=== PATIENT | female | born 1995 | race African-American/Black ===

== ENCOUNTER 2021-04-08 14:19 | Emergency (ER) | payer OTHER, SELFPAY ==
--- NOTE | ~2021-04-08 | XR_ITS ---
EXAMINATION: XR FINGER, LEFT CLINICAL INFORMATION: Trauma, pain left middle finger. COMPARISON: None TECHNIQUE: 2 views left middle finger and AP view left hand are obtained for 3 views. FINDINGS: Bony mineralization is normal. There is no radiolucent fracture line, dislocation, or destructive process. The lateral view shows a punctate 1 mm density dorsal side DIP joint middle finger of indeterminate age. Possibility of a tiny cortical avulsion cannot be excluded. This may be best correlated with patient's symptoms and clinical exam. The remainder the bony structures are unremarkable. XR/XR finger LT min 2V IMPRESSION: 1. Punctate 1 mm density dorsal side third finger DIP joint. Possibility of tiny cortical avulsion cannot be excluded. Recommend correlation with patient's symptoms and clinical exam. 2. Otherwise, no fracture or dislocation or arthropathy.
[2021-04-08 14:45] VITALS: BP 125/82; PULSE 94; RESP 16; TEMP 36.6; O2SAT 100; BMI 28.3
--- NOTE | 2021-04-08 15:20 | ED.UPPEXIN ---
HPI - Extremity Injury (Upper) General Chief Complaint: Extremity Injury, Upper Stated Complaint: finger injury Time Seen by Provider: 04/08/21 14:49 Source: patient Mode of arrival: ambulatory Limitations: no limitations History of Present Illness complaint: injury to: left and finger (Middle) Onset (ago): minute(s) (Prior to arrival) Other injuries: none Place: home Severity: moderate Relieving factors: none Exacerbating factors: movement of extremity and other (Palpation) Context: other (Twist/bend injury) Associated symptoms: denies other symptoms Related Data Previous Rx's Medication Instructions Recorded acetaminophen [Tylenol Extra 1,000 mg PO QID PRN #14 tab 04/08/21 Strength] ibuprofen 800 mg PO Q8H PRN #14 tab 04/08/21 oxycodone 5 mg PO BID PRN #10 tab 04/08/21 Allergies Allergy/AdvReac Type Severity Reaction Status Date / Time No Known Allergies Allergy Verified 04/08/21 14:45 Review of Systems Review of Systems: Constitutional : No changes in activity, No lethargy, No recent prior head injury, No agitation, No increased fussiness ENT/Mouth : No Ear Pain, No Nasal discharge/drainage Eyes: No Eye Pain, No Swelling, No Redness, No Foreign Body, No Vision Changes Cardiovascular : No Chest Pain, No SOB Respiratory : No Cough Gastrointestinal : No Nausea, No Vomiting, No abdominal Pain Genitourinary : No Dysuria, No Urinary Frequency, No Urinary Incontinence, No Urgency, No Flank Pain Musculoskeletal : + joint pain, No neck stiffness, No back pain/injury Skin : No lacerations Neuro : No unsteady gait, No Paresthesias, No Loss of Consciousness, No altered mental status, No Headache Yes all other systems are reviewed and are negative [facility] Past Medical History Attestation statement: The following information was validated with the patient. Medical History delivery delivered Costochondritis Social History Social History Advance Directives: No Advance Directives Information Provided: Yes Patient : No Physical Exam Vital Signs: Vital Signs: Last Vital Signs Temp 98 F 04/08/21 14:45 Pulse 94 04/08/21 14:45 Resp 16 04/08/21 14:45 BP 125/82 04/08/21 14:45 Pulse Ox 100 04/08/21 14:45 Body Mass Index 28.3 vital signs have been reviewed as normal and appeared to be correct. Blood pressure normal. Heart rate normal. Respiration rate normal. Temperature normal. Oxygen saturation normal. Appearance: Alert. Oriented X3. No acute distress. Head: Normal external exam. Normocephalic. Atraumatic. Eyes: PERRLA. EOMI. Conjunctiva and sclera normal. Eyelids normal. ENT: Pharynx normal. Uvula midline. Moist mucous membranes. Neck: Normal inspection. Neck supple. FROM. No adenopathy. Thyroid Normal. No meningeal signs. No neck mass noted. CVS: Normal heart rate and rhythm. Heart sound normal. Pulses normal throughout. Respiratory: No respiratory distress. Painless inspiration. Back: Full range of motion noted. No rashes/lesion/induration/fluctuance or signs of infection noted. Skin: Skin warm and dry. Normal skin color. Normal skin turgor. No rashes/lesions/lacerations noted. Extremities: To left hand middle finger at the PIP patient has mild soft tissue swelling and tender to palpation no obvious deformities or laxity noted at this time. Otherwise Extremities exhibit normal range of motion and nontender. Neuro: Oriented X 3. No motor deficit. No sensory deficit. Reflexes normal. Normal steady gait. No focal neuro deficits noted. Vascular: + radial pulses. Normal cap refill. No cyanosis noted to upper extremity nails. Course Course Course Narrative: Patient status post twist injury x-ray obtained and revealed possible avulsion fracture will place in a finger splint treat symptomatically and instructions to follow-up with orthopedic. Patient understands agrees with this plan. MDM - Extremity Injury (Upper) Medical Records Attestation: I reviewed the patient's medical records. Imaging Data Left middle finger x-ray: Attestation: I personally reviewed and interpreted this imaging study as follows: Radiologist's impression: FINDINGS: Bony mineralization is normal. There is no radiolucent fracture line, dislocation, or destructive process. The lateral view shows a punctate 1 mm density dorsal side DIP joint middle finger of indeterminate age. Possibility of a tiny cortical avulsion cannot be excluded. This may be best correlated with patient's symptoms and clinical exam. The remainder the bony structures are unremarkable. XR/XR finger LT min 2V IMPRESSION: 1. Punctate 1 mm density dorsal side third finger DIP joint. Possibility of tiny cortical avulsion cannot be excluded. Recommend correlation with patient's symptoms and clinical exam. 2. Otherwise, no fracture or dislocation or arthropathy. Discharge Plan Discharge Clinical Impression: Avulsion fracture of middle phalanx of finger Patient Disposition: Home, Self-Care Instructions: Finger Fracture (ED) Prescriptions: New ibuprofen 800 mg tablet 800 mg PO Q8H PRN (Reason: pain) Qty: 14 RF: 0 acetaminophen [Tylenol Extra Strength] 500 mg tablet 1,000 mg PO QID PRN (Reason: fever or pain) Qty: 14 RF: 0 oxycodone 5 mg tablet 5 mg PO BID PRN (Reason: pain) Qty: 10 RF: 0 Referrals: Rose Marie Alarcon MD [Physician] - 1 week Print Language: Greek
== END 2021-04-08 16:11 | disposition home or self-care (01) ==
PROVIDERS: Emergency Provider Emergency Medicine Emergency Medical Services; PCP Internal Medicine
DX: S62.623A Displaced fracture of middle phalanx of left middle finger, initial encounter for closed fracture (principal); W23.1XXA Caught, crushed, jammed, or pinched between stationary objects, initial encounter; Y93.89 Activity, other specified; Y92.017 Garden or yard in single-family (private) house as the place of occurrence of the external cause; Y99.9 Unspecified external cause status
CPT/HCPCS: 29130; 73140; 99283

== ENCOUNTER 2021-04-20 08:15 | Outpatient (REF) | payer OTHER, SELFPAY ==
--- NOTE | ~2021-04-20 | XR_ITS ---
EXAMINATION: XR HAND, LEFT CLINICAL INFORMATION: Pain and left hand. COMPARISON: None TECHNIQUE: PA, lateral, and oblique views of the left hand. FINDINGS: The bones and soft tissues are normal. No fracture. Alignment is anatomic. Joint spaces are maintained. No erosions or soft tissue calcifications. XR/XR hand LT min 3V IMPRESSION: Unremarkable left hand exam
== END 2021-04-20 08:16 | disposition home or self-care (01) ==
LOC: HO.HOSX 08:15
PROVIDERS: Visit Provider Orthopaedic Surgery
DX: M79.642 Pain in left hand (principal); S63.633A Sprain of interphalangeal joint of left middle finger, initial encounter; W23.0XXA Caught, crushed, jammed, or pinched between moving objects, initial encounter; Y93.67 Activity, basketball; Y92.9 Unspecified place or not applicable; Y99.8 Other external cause status
CPT/HCPCS: 73130; 99202

== ENCOUNTER 2022-02-16 19:13 | Emergency (ER) | payer OTHER, SELFPAY ==
--- NOTE | ~2022-02-16 | XR_ITS ---
EXAMINATION: XR CHEST CLINICAL INFORMATION: Chest pain. COMPARISON: None. TECHNIQUE: PA view of the chest was obtained. FINDINGS: Normal appearance of the cardiomediastinal silhouette. No focal airspace opacities, pleural effusions or pneumothorax. No acute osseous abnormalities. The visualized upper abdomen is within normal limits. XR/XR chest 1V IMPRESSION: No acute cardiopulmonary findings.
--- NOTE | 2022-02-16 19:54 | ECG_ITS ---
Test Reason : CHEST PAIN Blood Pressure : / mmHG Vent. Rate : 082 BPM Atrial Rate : 082 BPM P-R Int : 140 ms QRS Dur : 078 ms QT Int : 376 ms P-R-T Axes : 028 027 027 degrees QTc Int : 439 ms Normal sinus rhythm Normal ECG No previous ECGs available Referred By: Generic ED Physician Electronically Signed By:MATHEUS COOK
[2022-02-16 19:55] VITALS: BP 110/90; PULSE 80; RESP 17; TEMP 36.4; O2SAT 98; BMI 29.5
[2022-02-16 20:13] LABS: MANUAL DIFF FLAG NO
[2022-02-16 20:17] LABS: Basophils Absolute Auto 0.1 X10*3/uL (0.0-0.2); Basophils Percent Auto 0.7 % (0-2); Eosinophils Absolute Auto 0.2 X10*3/uL (0.0-0.4); Eosinophils Percent Auto 2.5 % (0-4); Hematocrit 41.4 % (37.0-47.0); Imm Gran Abs Auto 0.02 X10*3/uL (0.00-0.03); Imm Gran Pct Auto 0.2 % (0.0-0.4); Lymphocytes Absolute Auto 3.3 X10*3/uL (1.2-4.9); Lymphocytes Percent Auto 38.4 % (20-40); Mean Corpuscular HGB Conc 33.8 g/dl (31.0-35.0); Mean Corpuscular Hemoglobin 29.8 pg (27.0-33.0); Mean Corpuscular Volume 88.1 fL (80.0-98.0); Mean Platelet Volume 10.4 fL (9.4-12.3); Monocytes Absolute Auto 0.6 X10*3/uL (0.1-1.2); Monocytes Percent Auto 7.1 % (2-11); Neutrophils Absolute Auto 4.4 x10*3/uL (2.0-8.3); Neutrophils Percent Auto 51.1 % (45-73); Platelet Count 343 X10*3/uL (160-400); White Blood Count 8.6 X10*3/uL (4.8-10.8)
[2022-02-16 20:34] LABS: Anion Gap 14 (12-20); Blood Urea Nitrogen 4 mg/dL (9-16); Calcium 10.3 mg/dL (8.4-10.2); Carbon Dioxide 26 mmol/L (22-29); Chloride 102 mmol/L (96-108); Creatinine Clr Calc Pharmacy 84.2; Estimated Glomerular Filt Rate > 60; Glucose Random 96 mg/dL (60-115); Potassium 3.5 mmol/L (3.3-5.1); Sodium 138 mmol/L (135-145)
[2022-02-16 20:40] LABS: Troponin-I High Sensitivity < 3.5 ng/L (<3.5-17.0)
--- NOTE | 2022-02-16 22:01 | ED_ITS ---
HPI - Chest Pain General Chief Complaint: Chest Pain Stated Complaint: left side numbness Time Seen by Provider: 02/16/22 22:01 Source: patient Mode of arrival: ambulatory Limitations: no limitations History of Present Illness HPI narrative: patient with no known coronary risk factors complaining of pain left upper chest pain with pain in the left upper arm no shortness of breath no apparent distress no palpitation no fever or chills or cough had subjective shortness of breath, on arrival saturating 98% on room air Related Data Previous Rx's Medication Instructions Recorded acetaminophen 500 mg tablet 1,000 mg PO QID PRN #14 tab 04/08/21 (Tylenol Extra Strength) ibuprofen 800 mg tablet 800 mg PO Q8H PRN #14 tab 04/08/21 oxycodone 5 mg tablet 5 mg PO BID PRN #10 tab 04/08/21 Allergies Allergy/AdvReac Type Severity Reaction Status Date / Time No Known Allergies Allergy Verified 04/20/21 12:13 Review of Systems Review of Systems: Yes all other systems are reviewed and are negative PMFSH Past Medical History Medical History delivery delivered Costochondritis HTN (hypertension) Social History Social History Alcohol intake: current Alcohol intake frequency: holidays/special occasions only Patient Tobacco Use Status: Never used Tobacco Advance Directives: No Current occupational status: employed Current occupation: right handed Physical Exam Vital Signs: Vital Signs: Last Vital Signs Temp 97.5 F 02/16/22 19:55 Pulse 80 02/16/22 19:55 Resp 17 02/16/22 19:55 BP 110/90 H 02/16/22 19:55 Pulse Ox 98 02/16/22 19:55 BMI result Body Mass Index 29.5 Appearance: Alert. Oriented X3. No acute distress. ENT: Pharynx normal. Oral Mucosa moist Neck: Normal inspection. Neck supple. CVS: Normal heart rate and rhythm. Pulses normal. Respiratory: No respiratory distress. Equal air entry bilateral, left chest w all tenderness+ Abdomen: Soft and nontender. Skin: Skin warm and dry. Normal skin color. Normal skin turgor. Extremities: No lower extremity edema. No calf tenderness Neuro: Oriented X 3. MDM - Chest Pain MDM Narrative Medical decision making narrative: patient atypical chest pain negative troponin negative EKG heart score 0 will discharge patient home Lab Data Attestation: I reviewed the patient's lab results. Result diagrams: 02/16/22 20:05 02/16/22 20:05 Labs: Lab Results 02/16/22 02/16/22 02/16/22 Range/Units 20:05 20:05 20:05 WBC 8.6 (4.8-10.8) X10*3/uL RBC 4.70 (4.20-5.50) X10*6/uL Hgb 14.0 (12.0-16.0) g/dl Hct 41.4 (37.0-47.0) % MCV 88.1 (80.0-98.0) fL MCH 29.8 (27.0-33.0) pg MCHC 33.8 (31.0-35.0) g/dl RDW 13.0 (11.0-16.0) % Plt Count 343 (160-400) X10*3/uL MPV 10.4 (9.4-12.3) fL Immature Gran % (Auto) 0.2 (0.0-0.4) % Neut % (Auto) 51.1 (45-73) % Lymph % (Auto) 38.4 (20-40) % [place] % (Auto) 7.1 (2-11) % Eos % (Auto) 2.5 (0-4) % Baso % (Auto) 0.7 (0-2) % Lymph # (Auto) 3.3 (1.2-4.9) X10*3/uL [place] # (Auto) 0.6 (0.1-1.2) X10*3/uL Eos # (Auto) 0.2 (0.0-0.4) X10*3/uL Baso # (Auto) 0.1 (0.0-0.2) X10*3/uL Abs Immat Gran (auto) 0.02 (0.00-0.03) X10*3/uL Absolute Neuts (auto) 4.4 (2.0-8.3) x10*3/uL Absolute Nucleated RBC 0.000 (0.0-0.012) X10*3/uL Nucleated RBC % (auto) 0.0 (0.0-0.2) /100WBC Sodium 138 (135-145) mmol/L Potassium 3.5 (3.3-5.1) mmol/L Chloride 102 (96-108) mmol/L Carbon Dioxide 26 (22-29) mmol/L Anion Gap 14 (12-20) BUN 4 L (9-16) mg/dL Creatinine 0.83 (0.5-1.4) mg/dL Estim Creat Clear Calc 84.2 Estimated GFR > 60 Random Glucose 96 (60-115) mg/dL Calcium 10.3 H (8.4-10.2) mg/dL Troponin I High Sens < 3.5 (<3.5-17.0) ng/L ECG Data ECG #1: Attestation: I personally reviewed and interpreted this ECG as follows: Interpretation: normal sinus rhythm with heart rate of 82 beats per minute normal intervals normal axis no acute STT wave changes no acute ischemia Scores Heart Score History: -0- slightly suspicious ECG: -0- normal Age: -0- < or = 45 Risk factory: -0- no risk factors known Troponin: -0- < or = normal limit Score: 0 Risk: 1.7% Discharge Plan Discharge Clinical Impression: Atypical chest pain Patient Disposition: Home, Self-Care Instructions: Musculoskeletal Pain (ED) Additional Instructions: Take Tylenol/Motrin for pain as needed your pain is not from the heart likely musculoskeletal Prescriptions: No Action ibuprofen 800 mg tablet 800 mg PO Q8H PRN (Reason: pain) Qty: 14 0RF acetaminophen [Tylenol Extra Strength] 500 mg tablet 1,000 mg PO QID PRN (Reason: fever or pain) Qty: 14 0RF oxycodone 5 mg tablet 5 mg PO BID PRN (Reason: pain) Qty: 10 0RF Interventions: ED Discharge Assessment Last Done: 02/16/22 22:19 Discharge Date/Time: 02/16/22 22:20
== END 2022-02-16 22:20 | disposition home or self-care (01) ==
LOC: HO.ED 22:10
PROVIDERS: Emergency Provider Internal Medicine
DX: R07.89 Other chest pain (principal); I10 Essential (primary) hypertension
CPT/HCPCS: 36415; 71045; 80048; 84484; 85025; 93005; 99283

== ENCOUNTER 2022-04-04 13:37 | Emergency (ER) | payer OTHER, SELFPAY ==
[2022-04-04 13:44] VITALS: BP 110/60; PULSE 105; O2SAT 99
[2022-04-04 14:15] VITALS: BP 117/75; PULSE 73; RESP 18; TEMP 36.4; O2SAT 98; BMI 30.2
[2022-04-04 14:31] LABS: Basophils Absolute Auto 0.1 X10*3/uL (0.0-0.2); Basophils Percent Auto 0.5 % (0-2); Eosinophils Percent Auto 0.3 % (0-4); Hematocrit 42.1 % (37.0-47.0); Hemoglobin 13.8 g/dl (12.0-16.0); Imm Gran Abs Auto 0.08 X10*3/uL (0.00-0.03); Imm Gran Pct Auto 0.5 % (0.0-0.4); Lymphocytes Absolute Auto 2.8 X10*3/uL (1.2-4.9); Lymphocytes Percent Auto 18.5 % (20-40); MANUAL DIFF FLAG NO; Mean Corpuscular HGB Conc 32.8 g/dl (31.0-35.0); Mean Corpuscular Hemoglobin 29.6 pg (27.0-33.0); Mean Corpuscular Volume 90.3 fL (80.0-98.0); Mean Platelet Volume 9.9 fL (9.4-12.3); Monocytes Absolute Auto 0.5 X10*3/uL (0.1-1.2); Monocytes Percent Auto 3.5 % (2-11); Neutrophils Absolute Auto 11.7 x10*3/uL (2.0-8.3); Neutrophils Percent Auto 76.7 % (45-73); Platelet Count 383 X10*3/uL (160-400); Red Blood Count 4.66 X10*6/uL (4.20-5.50); Red Cell Distribution Width 14.6 % (11.0-16.0); White Blood Count 15.3 X10*3/uL (4.8-10.8)
[2022-04-04 14:53] LABS: COVID-19 Test Negative (Negative); IDNOW Serial# 55D5AD1C
[2022-04-04 14:59] LABS: IDNOW Serial# 16C4AD1C; Influenza A Negative (Negative); Influenza B2 Negative (Negative)
[2022-04-04 15:11] LABS: Anion Gap 22 (12-20); Blood Urea Nitrogen 11 mg/dL (9-16); Carbon Dioxide 19 mmol/L (22-29); Chloride 108 mmol/L (96-108); Creatinine Clr Calc Pharmacy 76.2; Estimated Glomerular Filt Rate > 60; Glucose Random 59 mg/dL (60-115); Potassium 4.1 mmol/L (3.3-5.1); Sodium 145 mmol/L (135-145)
--- NOTE | 2022-04-04 23:37 | ED_ITS ---
HPI - General Adult General Chief complaint: Nausea/Vomiting/Diarrhea Stated complaint: WEAKNESS,N/V Time Seen by Provider: 04/04/22 23:36 Source: patient Mode of arrival: ambulatory Limitations: no limitations History of Present Illness HPI narrative: patient no significant past medical history been vomiting all day today unable to hold down anything solid urinated only 1 time no fever no chills no other family member sick patient has abdominal cramping diffusely denies any urinary complaints denies any bad food intake or recent travel Related Data Previous Rx's Medication Instructions Recorded acetaminophen 500 mg tablet 1,000 mg PO QID PRN #14 tab 04/08/21 (Tylenol Extra Strength) ibuprofen 800 mg tablet 800 mg PO Q8H PRN #14 tab 04/08/21 oxycodone 5 mg tablet 5 mg PO BID PRN #10 tab 04/08/21 ondansetron 4 mg disintegrating 4 mg PO Q6-8H PRN #10 tab 04/05/22 tablet Allergies Allergy/AdvReac Type Severity Reaction Status Date / Time No Known Allergies Allergy Verified 04/04/22 14:15 Review of Systems Review of Systems: Yes all other systems are reviewed and are negative [facility] Past Medical History Medical History delivery delivered Costochondritis HTN (hypertension) Social History Social History Alcohol intake: current Alcohol intake frequency: holidays/special occasions only Patient Tobacco Use Status: Never used Tobacco Advance Directives: No Advance Directives Information Provided: No Current occupational status: employed Current occupation: right handed Physical Exam ED Vital Signs: Vital Signs - 24 hr 04/04/22 14:15 04/04/22 23:57 Temperature 97.6 F 98.2 F Pulse Rate 73 57 Respiratory Rate 18 16 Blood Pressure 117/75 110/56 L Pulse Oximetry 98 100 BMI result Body Mass Index 30.2 Appearance: Alert. Oriented X3. No acute distress. Eyes: no pallor or icterus ENT: Pharynx normal. Oral Mucosa moist Neck: Normal inspection. Neck supple. CVS: Normal heart rate and rhythm. Pulses normal. Respiratory: No respiratory distress. Equal air entry bilateral, no wheezing/rales/rhonchi Abdomen: Soft and nontender. Bowel sounds are present, no mass palpable, no CVA tenderness no focal tenderness or guarding Skin: Skin warm and dry. Normal skin color. Normal skin turgor. Extremities: No lower extremity edema. Medical Decision Making MDM Narrative Medical decision making narrative: patient feeling much better now taking p.o. fluids no focal abdominal tenderness discharge patient home likely viral etiology Lab Data Lab results reviewed: Yes I reviewed the patient's lab results. Result diagrams: 04/04/22 14:23 04/04/22 14:23 Labs: Lab Results 04/04/22 04/04/22 04/04/22 Range/Units 14:23 14:23 14:23 WBC 15.3 H (4.8-10.8) X10*3/uL RBC 4.66 (4.20-5.50) X10*6/uL Hgb 13.8 (12.0-16.0) g/dl Hct 42.1 (37.0-47.0) % MCV 90.3 (80.0-98.0) fL MCH 29.6 (27.0-33.0) pg MCHC 32.8 (31.0-35.0) g/dl RDW 14.6 (11.0-16.0) % Plt Count 383 (160-400) X10*3/uL MPV 9.9 (9.4-12.3) fL Immature Gran % (Auto) 0.5 H (0.0-0.4) % Neut % (Auto) 76.7 H (45-73) % Lymph % (Auto) 18.5 L (20-40) % [place] % (Auto) 3.5 (2-11) % Eos % (Auto) 0.3 (0-4) % Baso % (Auto) 0.5 (0-2) % Lymph # (Auto) 2.8 (1.2-4.9) X10*3/uL [place] # (Auto) 0.5 (0.1-1.2) X10*3/uL Eos # (Auto) 0.0 (0.0-0.4) X10*3/uL Baso # (Auto) 0.1 (0.0-0.2) X10*3/uL Abs Immat Gran (auto) 0.08 H (0.00-0.03) X10*3/uL Absolute Neuts (auto) 11.7 H (2.0-8.3) x10*3/uL Absolute Nucleated RBC 0.000 (0.0-0.012) X10*3/uL Nucleated RBC % (auto) 0.0 (0.0-0.2) /100WBC Sodium 145 (135-145) mmol/L Potassium 4.1 (3.3-5.1) mmol/L Chloride 108 (96-108) mmol/L Carbon Dioxide 19 L (22-29) mmol/L Anion Gap 22 H (12-20) BUN 11 D (9-16) mg/dL Creatinine 0.93 (0.5-1.4) mg/dL Estim Creat Clear Calc 76.2 Estimated GFR > 60 Random Glucose 59 L* (60-115) mg/dL Calcium 10.0 (8.4-10.2) mg/dL Urine Color Urine Appearance Urine pH (5.0-8.0) Ur Specific [place] (1.005-1.025) Urine Protein (NEG-TRACE) MG/DL Urine Glucose (UA) (NEG) MG/DL Urine Ketones (NEG) MG/DL Urine Blood (NEG) Urine Nitrite (NEG) Ur Leukocyte Esterase (NEG) Urine Test (NEGATIVE) COVID-19 (MATTHEW) (Negative) COVID-19 Clin Com Influenza Type A (OLLIE) Negative (Negative) Influenza Type B (OLLIE) Negative (Negative) Influenza A & B Note See Note 04/04/22 04/05/22 04/05/22 Range/Units 14:23 00:24 00:24 WBC (4.8-10.8) X10*3/uL RBC (4.20-5.50) X10*6/uL Hgb (12.0-16.0) g/dl Hct (37.0-47.0) % MCV (80.0-98.0) fL MCH (27.0-33.0) pg MCHC (31.0-35.0) g/dl RDW (11.0-16.0) % Plt Count (160-400) X10*3/uL MPV (9.4-12.3) fL Immature Gran % (Auto) (0.0-0.4) % Neut % (Auto) (45-73) % Lymph % (Auto) (20-40) % [place] % (Auto) (2-11) % Eos % (Auto) (0-4) % Baso % (Auto) (0-2) % Lymph # (Auto) (1.2-4.9) X10*3/uL [place] # (Auto) (0.1-1.2) X10*3/uL Eos # (Auto) (0.0-0.4) X10*3/uL Baso # (Auto) (0.0-0.2) X10*3/uL Abs Immat Gran (auto) (0.00-0.03) X10*3/uL Absolute Neuts (auto) (2.0-8.3) x10*3/uL Absolute Nucleated RBC (0.0-0.012) X10*3/uL Nucleated RBC % (auto) (0.0-0.2) /100WBC Sodium (135-145) mmol/L Potassium (3.3-5.1) mmol/L Chloride (96-108) mmol/L Carbon Dioxide (22-29) mmol/L Anion Gap (12-20) BUN (9-16) mg/dL Creatinine (0.5-1.4) mg/dL Estim Creat Clear Calc Estimated GFR Random Glucose (60-115) mg/dL Calcium (8.4-10.2) mg/dL Urine Color YELLOW Urine Appearance CLEAR Urine pH 6.0 (5.0-8.0) Ur Specific [place] >= 1.030 H (1.005-1.025) Urine Protein NEG (NEG-TRACE) MG/DL Urine Glucose (UA) NEG (NEG) MG/DL Urine Ketones 40 (NEG) MG/DL Urine Blood NEG (NEG) Urine Nitrite NEG (NEG) Ur Leukocyte Esterase NEG (NEG) Urine Test NEGATIVE (NEGATIVE) COVID-19 (MATTHEW) Negative (Negative) COVID-19 Clin Com See Note Influenza Type A (OLLIE) (Negative) Influenza Type B (OLLIE) (Negative) Influenza A & B Note Discharge Plan Discharge Clinical Impression: Gastroenteritis Patient Disposition: Home, Self-Care Instructions: Acute Nausea and Vomiting (ED) Additional Instructions: drink plenty of fluids nausea medicine as prescribed follow with PCP if not better Prescriptions: New ondansetron 4 mg tablet,disintegrating 4 mg PO Q6-8H PRN (Reason: nausea and vomiting) Qty: 10 0RF No Action ibuprofen 800 mg tablet 800 mg PO Q8H PRN (Reason: pain) Qty: 14 0RF acetaminophen [Tylenol Extra Strength] 500 mg tablet 1,000 mg PO QID PRN (Reason: fever or pain) Qty: 14 0RF oxycodone 5 mg tablet 5 mg PO BID PRN (Reason: pain) Qty: 10 0RF
[2022-04-04] MEDS: ondansetron HCL 4 MG/2 ML VIAL IVPUSH (23:50)
[2022-04-04] MEDS: 0.9 % Sodium Chloride 1,000 ML 999 ML IV (23:52)
[2022-04-04 23:57] VITALS: BP 110/56; PULSE 57; RESP 16; TEMP 36.8; O2SAT 100
[2022-04-05 00:42] LABS: Appearance Urine CLEAR; Color Urine YELLOW; Glucose Urine UA NEG (NEG); Leukocyte Esterase Urine NEG (NEG); Nitrite Urine NEG (NEG); Specific Gravity - Urine >= 1.030 (1.005-1.025); Urine Blood NEG (NEG); Urine Ketones 40 MG/DL (NEG); Urine Protein NEG (NEG-TRACE)
[2022-04-05 00:59] LABS: Urine Pregnancy NEGATIVE (NEGATIVE)
[2022-04-05 01:00] LABS: UPreg QC Valid YES
== END 2022-04-05 01:40 | disposition home or self-care (01) ==
PROVIDERS: Emergency Provider Internal Medicine; PCP Internal Medicine
DX: K52.9 Noninfective gastroenteritis and colitis, unspecified (principal); R11.2 Nausea with vomiting, unspecified; Z20.822 Contact with and (suspected) exposure to COVID-19; Z79.899 Other long term (current) drug therapy
CPT/HCPCS: 80048; 81003; 81025; 85025; 87502; 87635; 96361; 96374; 99283; 99284; J2405

== ENCOUNTER 2022-09-30 16:32 | Outpatient (REF) | payer OTHER, SELFPAY ==
[2022-09-30 17:35] LABS: Influenza A PCR NEGATIVE (Negative); Influenza B PCR NEGATIVE (Negative); Resp Syncy Virus RNA Qual PCR NEGATIVE (Negative); SARS COV2 PCR INHOUSE POSITIVE (Negative)
== END 2022-09-30 16:33 | disposition home or self-care (01) ==
LOC: HO.LNP 16:32
PROVIDERS: Visit Provider Physician Assistant
DX: J06.9 Acute upper respiratory infection, unspecified (principal); Z20.822 Contact with and (suspected) exposure to COVID-19
CPT/HCPCS: 0241U

== ENCOUNTER 2024-01-25 10:29 | Outpatient (AMB) | payer OTHER, SELFPAY ==
--- NOTE | 2024-01-25 11:33 | MHC.OFFWIV ---
Intake Vital Signs 01/25/24 11:43 Weight 143 lb BP 116/60 Blood Pressure Location Lt brachial Position Sitting Pulse 98 Pulse Source Pulse Oximeter Temp 98.4 F Temp Source Temporal Artery Scan Pulse Oximetry (%) 99 Oxygen Delivery Method Room Air Intake Visit Reasons: EST/cough and fever([phone]) Intake Note: pt is here today for cough and fever started 1 week ago Patient Tobacco Use Status: Current everyday Tobacco user Allergies No Known Allergies Allergy (Verified 01/25/24 11:35) Do you need a note to return to daycare/school/sports/work: Yes HPI HPI Comments History of Present Illness Details 28 y/o female patient who presents to walk in clinic with c/o cough and fever x 1 week. Reports wheezing, chest tightness and SOB. Her family at home sick with similar symptoms. She works as high school social science teacher. [employer] [employer] [facility] Medical History delivery delivered Costochondritis HTN (hypertension) Social History Alcohol intake: current Alcohol intake frequency: holidays/special occasions only Patient Tobacco Use Status: Current everyday Tobacco user Current occupational status: employed Current occupation: right handed Physical Exam Vital Signs: Last Vital Signs Temp 98.4 F 01/25/24 11:43 Pulse 98 01/25/24 11:43 BP 116/60 01/25/24 11:43 Pulse Ox 99 01/25/24 11:43 Oxygen Delivery Method Room Air 01/25/24 11:43 Const General: comfortable and no acute distress Orientation/consciousness: patient oriented x3 HEENT Head: Yes normocephalic Ears: external ears normal and TM abnormal erythematous bilateral and with fluid behind the TM bilateral General nose exam: Abnormal mucous membranes and turbinates present boggy and erythematous Face and sinus: Yes sinuses nontender Mouth: moist mucous membranes Throat: Yes posterior oropharynx normal Resp Effort & Inspection: normal respiratory effort, able to speak in complete sentences and Actively coughing Auscultation: no crackles, no rales and wheezes Cardio Rate: regular rate Rhythm: regular rhythm Neuro General: patient oriented x3 Office Procedures Nebulizer Treatment Nebulizer Treatment [id number] RX initial, or Nebulizer Subsequent Treatment Office Meds ipratropium 0.5 mg-albuterol 3 mg (2.5 mg base)/3 mL nebulization soln Performing Provider: Shayy Eason NP Performing Location: [facility] Administered by: Shayy Eason NP on 01/25/24 12:37 Dose Route Admin Location Dispensed Lot Number Expiration Date NDC [employer] 3 mL inhalation 3 mL [id number] 08/20/24 5686-1155-05 [facility] Assessment & Plan Assessment & Plan (1) Upper respiratory infection, viral: Code(s): J06.9 - Acute upper respiratory infection, unspecified Plan: - Rest and hydrate with warm fluids - Take medicine as directed (2) Wheezing on auscultation: Code(s): R06.2 - Wheezing Plan: - use Albuterol inhaler as directed (3) Cough in adult: Code(s): R05.9 - Cough, unspecified Plan: - Warm fluids with honey - OTC cold/cough remedies Plan Will call Pt with results Continue taking Acetaminophen Orders: Orders SARS-CoV2/FLU/RSV Today J06.9 - Acute upper respiratory infection, unspecified, R06.2 - Wheezing, R07.9 - Chest pain, unspecified AMB Nebulizer Treatment Today J06.9 - Acute upper respiratory infection, unspecified, R06.2 - Wheezing Medications: New azithromycin 500 mg PO DAILY 3 days 3 tabs 0RF R05.9 - Cough, unspecified benzonatate 100 mg PO TID 60 caps 0RF R05.9 - Cough, unspecified prednisone 50 mg PO DAILY 5 days 5 tabs 0RF J06.9 - Acute upper respiratory infection, unspecified, R06.2 - Wheezing albuterol sulfate 90 mcg/actuation 2 puffs inhalation Q4-6H PRN 6.7 grams 0RF shortness of breath or wheezing J06.9 - Acute upper respiratory infection, unspecified, R06.2 - Wheezing Coding Level of Care Code Est Pt Level 3 (51389) Diagnoses Upper respiratory infection, viral J06.9 Wheezing on auscultation R06.2 Cough in adult R05.9 CPT Codes Nebulizer Treatment - Nebulizer Treatment, initial or subsequent: [id number] RX initial, or Nebulizer Subsequent Treatment ([id number]) Time Spent (min) 15
[2024-01-25 11:43] VITALS: BP 116/60; PULSE 98; TEMP 36.9; O2SAT 99
== END 2024-01-25 12:40 | disposition home or self-care (01) ==
PROVIDERS: PCP Internal Medicine; Visit Provider Nurse Practitioner Family
DX: J06.9 Acute upper respiratory infection, unspecified (principal); R06.2 Wheezing; R05.9 Cough, unspecified
CPT/HCPCS: 94640; 99213; J7620

== ENCOUNTER 2024-01-25 12:20 | Outpatient (REF) | payer OTHER, SELFPAY ==
[2024-01-25 14:07] LABS: Influenza A PCR NEGATIVE (Negative); Influenza B PCR NEGATIVE (Negative); Resp Syncy Virus RNA Qual PCR NEGATIVE (Negative); SARS COV2 PCR INHOUSE NEGATIVE (Negative)
== END 2024-01-25 12:21 | disposition home or self-care (01) ==
LOC: HO.LAB 12:20
PROVIDERS: Visit Provider Nurse Practitioner Family
DX: J06.9 Acute upper respiratory infection, unspecified (principal); R06.2 Wheezing; R07.9 Chest pain, unspecified
CPT/HCPCS: 0241U